=== PATIENT | female | born 1950 | race Caucasian/White ===

== ENCOUNTER → 2023-04-19 07:31 | Outpatient (REF) | payer MEDICARE, SELFPAY ==
[2023-04-19 08:30] LABS: % Basophils 0.7 % (0-2); % Eosinophils 2.1 % (0-6); % Immature Granulocytes 0.2 % (0-0.5); % Lymphocytes 21.5 % (20.5-51.1); % Monocytes 9.3 % (1.7-9.3); % Neutrophils 66.2 % (42.2-75.2); Absolute Eosinophils 0.1 10^3/uL (0-0.7); Absolute Lymphocytes 1.3 10^3/uL (1.2-3.4); Absolute Monocytes 0.5 10^3/uL (0.1-0.6); Absolute Neutrophils 3.9 10^3/uL (1.4-6.5); Hematocrit 38.3 % (37.0-47.0); Hemoglobin 13.1 g/dL (12.0-16.0); Mean Corp Hgb Conc. 34.2 g/dL (33.0-37.0); Mean Corpuscular Hgb 33.5 pg (27.0-31.0); Mean Platelet Volume 8.6 fL (7.4-10.4); Nucleated Red Blood Cells % 0 %; Platelet Count 254 10^3/uL (130-400); Red Blood Cell Count 3.91 10^6/uL (4.20-5.40); Red Cell Dist. Width 12.8 % (11.5-14.5); White Blood Cell Count 5.8 10^3/uL (4.8-10.8)
[2023-04-19 08:58] LABS: ALT (SGPT) 24 U/L (0-35); AST (SGOT) 31 U/L (14-36); Albumin 3.8 g/dl (3.5-5.0); Alkaline Phosphatase 68 U/L (38-126); Blood Urea Nitrogen 14 mg/dl (7-17); Calcium 8.8 mg/dl (8.4-10.2); Carbon Dioxide 32 mmol/L (22-30); Chloride 104 mmol/L (98-107); Glucose 86 mg/dl (70-99); Iron 120 ug/dl (37-170); Magnesium 2.3 mg/dl (1.6-2.3); Potassium 3.7 mmol/L (3.5-5.1); Sodium 136 mmol/L (135-145); Total Bilirubin 0.7 mg/dl (0.2-1.3); Total Cholesterol 199 mg/dl (50-199); Total Protein 5.8 g/dl (6.3-8.2); Triglyceride 70 mg/dl (10-149); Very Low Density Lipoprotein 14 mg/dl (0-30); eGFR > 60.00
[2023-04-19 09:06] LABS: Percent Saturation 45 % (20-50); Total Iron Binding Capacity 266 ug/dl (265-497)
[2023-04-19 09:10] LABS: HDL Cholesterol 121 mg/dl; LDL Cholesterol, Calculated 64 mg/dl
[2023-04-19 09:25] LABS: Free T4 1.47 ng/dl (0.78-2.19)
[2023-04-19 09:40] LABS: TSH 0.53 uIU/ml (0.47-4.68)
[2023-04-19 09:44] LABS: Ferritin 40.7 ng/ml (11.1-264.0)
[2023-04-19 10:16] LABS: Folate > 20.0 ng/ml (2.76-20); Vitamin B12 420 pg/ml (239-931)
[2023-04-21 20:33] LABS: Zinc 68.9 ug/dL (60.0-120.0)
== END ==
LOC: REG 07:31
PROVIDERS: ATTENDING PHYSICIAN Nurse Practitioner Primary Care
DX: E78.2 Mixed hyperlipidemia (principal); E03.8 Other specified hypothyroidism; Z98.84 Bariatric surgery status; D50.8 Other iron deficiency anemias
CPT/HCPCS: 36415; 80053; 80061; 82607; 82728; 82746; 83540; 83550; 83735; 84439; 84443; 84630; 85025

== ENCOUNTER 2023-05-09 11:26 | Emergency (ER) | payer MEDICARE, SELFPAY ==
[2023-05-09 11:36] VITALS: BP 144/91; BMI 23.3
[2023-05-09 12:25] VITALS: BP 141/94
[2023-05-09 12:43] LABS: % Basophils 0.8 % (0-2); % Eosinophils 1.1 % (0-6); % Immature Granulocytes 0.2 % (0-0.5); % Lymphocytes 27.4 % (20.5-51.1); % Neutrophils 60.5 % (42.2-75.2); Absolute Eosinophils 0.1 10^3/uL (0-0.7); Absolute Lymphocytes 1.5 10^3/uL (1.2-3.4); Absolute Monocytes 0.5 10^3/uL (0.1-0.6); Absolute Neutrophils 3.2 10^3/uL (1.4-6.5); Hematocrit 43.2 % (37.0-47.0); Hemoglobin 14.4 g/dL (12.0-16.0); Mean Corp Hgb Conc. 33.3 g/dL (33.0-37.0); Mean Corpuscular Volume 98.9 fL (81.0-99.0); Mean Platelet Volume 8.5 fL (7.4-10.4); Nucleated Red Blood Cells % 0 %; Platelet Count 308 10^3/uL (130-400); Red Blood Cell Count 4.37 10^6/uL (4.20-5.40); Red Cell Dist. Width 12.8 % (11.5-14.5); White Blood Cell Count 5.3 10^3/uL (4.8-10.8)
[2023-05-09 12:59] LABS: ALT (SGPT) 22 U/L (0-35); AST (SGOT) 27 U/L (14-36); Alkaline Phosphatase 72 U/L (38-126); Blood Urea Nitrogen 17 mg/dl (7-17); Calcium 9.6 mg/dl (8.4-10.2); Carbon Dioxide 31 mmol/L (22-30); Chloride 100 mmol/L (98-107); Estimated Creatinine Clearance 76 ml/min; Glucose 101 mg/dl (70-99); Potassium 4.4 mmol/L (3.5-5.1); Sodium 136 mmol/L (135-145); Total Bilirubin 0.6 mg/dl (0.2-1.3); Total Protein 6.1 g/dl (6.3-8.2); eGFR > 60.00
[2023-05-09 13:00] VITALS: BP 135/74
--- NOTE | 2023-05-09 13:35 | ED.GENMED ---
History of Present Illness
General
Chief Complaint: Cardiac Symptoms
Source: patient and spouse
Exam Limitations: none
Time Seen by Provider: 05/09/23 12:36
Nursing documentation reviewed up to this point in time: agreed with
Travel History
Have you had any contact with someone who has COVID-19?: No
Do you have any symptoms of coronavirus? Fever > 100 degrees, chills, cough, shortness of breath, sore throat, loss of taste or smell, muscle aches, or headache?: No
History of Present Illness
History of Present Illness:
72-year-old female with history of hypothyroidism, anxiety/depression, ADHD who presents to the emergency room for evaluation after her watch told her that she is in A-fib. Patient has no symptoms that she feels well�she denies any chest pain,
shortness of breath, palpitations, increased fatigue, dizziness, lightheadedness or any other symptoms. She says that today her watch alarmed and when she rechecked it it told her that she was in A-fib. She says that she went back and looked at
her history after seeing this and noticed that she has been in A-fib according to the watch on and off at least since March and she says she had an episode as far back as April last year. She denies any known cardiac history or history of A-fib
and has never seen a biomedical analytical scientist but her sees Dr. Lugo and she would like to follow-up with same group.
Past History
Past History
ED Past Medical History: Hypothyroidism, Other (CPPD, ADHAD, Bipolar, iron deficiency anemia) and Other (Frequent falls, difficulty with balance chronically)
ED Past Surgical History: and Other (Gastric bypass)
Social History
Tobacco: Non-smoker
Personal:
Living: with family
Review of Systems
Review of Systems
All Other Systems: ROS reviewed and negative except as documented in HPI and ROS
Constitutional: Denies fever or chills
Respiratory: Denies cough or trouble breathing
Cardiac: Denies chest pain, diaphoresis, palpitations or syncope
ABD/GI: Denies abdominal pain, nausea or vomiting
: Denies flank pain
Musculoskeletal: Denies neck pain or back pain
Neurological: Denies dizzy, headache, weakness or numbness
Phy Exam
Physical Exam
Physical Exam:
General: Awake, alert, oriented x3; no acute distress
Head: Normocephalic, atraumatic
Eyes: Conjunctiva normal, sclera anicteric, pupils equal round reactive to light bilaterally
Throat: Airway intact, handling secretions
Neck: Trachea midline, supple without meningismus
Lungs: Clear to auscultation bilaterally, no wheezing, rales, rhonchi
Heart: Regular rate and irregular rhythm, no murmurs, gallops, or rubs
Neuro: Cranial nerves grossly intact, speech fluid
Extremities: No edema in extremities, equal pulses in all extremities
Scores
Heart Failure Risk
Heart Failure Risk Score: Not Applicable
Heart Score for Chest Pain Patients
STEMI patient?: Not applicable
Withdrawal Assessment of Alcohol
Withdrawal Assessment Completed?: Not applicable
Course
Orders/Labs/Results
Orders:
Orders
05/09/23 11:29
Electrocardiogram (*1) Urgent
Reason for Study: Chest Pain
EKG- Treatment ONCE
05/09/23 12:28
Complete Blood Count/With Diff Urgent
Comprehensive Metabolic Panel Urgent
TSH Reflex To Free T4 Urgent
Comment: ADD ON
05/09/23 13:30
Add On- LAB Urgent
Tests Added?: TSH reflex to free T4
Abnormal Lab Results
05/09/23
12:28
MCH 33.0 H pg
(27.0-31.0)
Monocytes % 10.0 H %
(1.7-9.3)
Carbon Dioxide 31 H mmol/L
(22-30)
Creatinine 0.4 L mg/dL
(0.6-1.0)
Glucose 101 H mg/dl
(70-99)
Total Protein 6.1 L g/dl
(6.3-8.2)
05/09/23 12:28
05/09/23 12:28
Vital Signs
Initial and Last Documented VS:
Initial Vital Signs
Temp Pulse Resp BP Pulse Ox
36.4 C 75 16 144/91 99
05/09/23 11:36 05/09/23 11:36 05/09/23 11:36 05/09/23 11:36 05/09/23 11:36
Last Documented Vital Signs
Temp Pulse Resp BP Pulse Ox
36.4 C 87 20 141/94 96
05/09/23 11:36 05/09/23 12:30 05/09/23 12:30 05/09/23 12:25 05/09/23 12:26
MDM/Problems Addressed
Differential Diagnosis Includes:
A-fib/flutter
MDM/Problems Addressed:
72-year-old female presents to the emergency room asymptomatic that she presents because her watch told her she is in A-fib. She says that reviewing the data shows she has been in and out of A-fib for quite some time. She is mildly hypertensive
but vital signs otherwise normal including a heart rate in the 70s or 80s. Her EKG shows atrial flutter with variable conduction. We sent basic screening labs including a CBC and a CMP which are essentially unremarkable. Fortunately she is
asymptomatic and rate controlled. Her [id number] risk is 2. HAS-BLED score is 1 However patient says that she has high rate of falls and has poor balance that she walks with a cane and says she has a fall every few months. Given this there is
some increased risk with anticoagulation. Discussed case with cardiology they recommended starting patient on Toprol 12.5 mg daily and baby aspirin to start and they will follow-up with patient in the office to have a full discussion regarding
risks and benefits of anticoagulation. Patient very comfortable with this plan. Spoke about return precautions all questions answered.
Chronic conditions affecting care:
Fall risk, history of GERD/PUD�higher risk for bleeding
Acute Exacerbation and/or Progression of Chronic Illness:
Acutely hypertensive
Acute Exacerbation and/or Progression of Chronic Illness: HTN
*Pulse Oximetry
Patient hypoxic: no
*EKG
Interpreted by ED Provider?: Yes
Heart Rate: 84
Rate: normal
Rhythm: atrial flutter
[place]: normal axis
Interval: normal interval
QRS Pattern: normal QRS
Ischemia: no ischemia
*Critical Care Note
Total Time (30-74mins, 75-104mins- exclusive of procedures): Not Applicable
Data Reviewed
Source: patient and spouse
Prescriptions/Medications Considered But Not Given:
Considered anticoagulation such as Eliquis or Xarelto but given potential bleeding risk deferred to further discussion with cardiology
Patient Management
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
ED Attending Note
-
Portions of this chart may have been created with voice recognition software.� Occasional wrong word or��sound alike� substitutions may have occurred due to the inherent limitations of voice recognition software.
Discharge Plan
Departure
Patient Disposition: Home (Routine Discharge)
Date of Disposition: 05/09/23
Time of Disposition: 13:43
Patient with high blood pressure during this ER visit?: Yes
Discharge Problem:
Atrial flutter
Instructions: Atrial Fibrillation and Atrial Flutter ED
Prescriptions:
New
metoprolol succinate [Toprol XL] 25 mg tablet extended release 24 hr
12.5 mg PO DAILY Qty: 30 0RF
aspirin 81 mg tablet,delayed release (DR/EC)
81 mg PO DAILY Qty: 30 0RF
No Action
levothyroxine 100 MCG tablet
100 mcg PO DAILY Qty: 0
folic acid 1 MG tablet
1 mg PO DAILY Qty: 0
lamotrigine [Lamictal] 200 MG tablet
400 mg PO HS
famotidine 20 MG tablet
20 mg PO HS
cholecalciferol (vitamin D3) [Vitamin D3] 2,000 UNIT capsule
2,000 unit PO DAILY
amoxicillin 500 MG capsule
500 mg PO TID
dextroamphetamine-amphetamine [Adderall] 30 MG tablet
30 mg PO TID
calcium carbonate 500 MG tablet
500 mg PO DAILY
trazodone 100 MG tablet
200 mg PO HS
duloxetine 20 MG capsule,delayed release(DR/EC)
20 mg PO DAILY
melatonin 5 MG tablet
5 mg PO HS
psyllium husk (aspartame) [Metamucil Fiber Singles] 1 PACKET powder in packet
1 packet PO DAILY
lurasidone [Latuda] 120 MG tablet
120 mg PO HS
sennosides [senna] 1 TABLET tablet
2 tab PO BID 0RF
acetaminophen [Tylenol Extra Strength] 500 MG tablet
1,000 mg PO Q6H Qty: 60 0RF
Rx Instructions:
Do not take >4000 mg daily.
docusate sodium 100 MG capsule
100 mg PO BID 0RF
oxycodone 10 MG tablet
10 mg PO Q6HPRN PRN (Reason: moderate-severe pain) Qty: 30 0RF
Rx Instructions:
1/2 tab for moderate pain, 1 if severe
dx ACDF
ongoing therapy
prednisone 10 MG tablet
30 mg PO TAPER Qty: 12 0RF
Rx Instructions:
3 tabs (30mg) x2 days, 2 tabs (20mg) x2 days, 1 tab (10mg) x2 days, then stop
cyclobenzaprine 5 MG tablet
5 mg PO BIDPRN PRN (Reason: muscle spasms) Qty: 10 0RF
Rx Instructions:
Caution with Oxycodone - can cause drowsiness.
tramadol 50 mg tablet
50 mg PO BID PRN (Reason: Pain) Qty: 20 0RF
Referrals:
Barb Alexandre CRNP [Family Provider] -
Aaron Moncada MD [Active] - Call in 1-3 days for appt (Cardiology)
Activity Restrictions/Additional Instructions:
Thank you for visiting the Emergency Department at [facility].
1. Please schedule a follow up appointment as directed. Call first thing tomorrow morning to make an appointment.
2. If indicated, please take your medications as instructed and indicated on discharge paperwork.
3. If any of your symptoms do not improve, or persist, or become more severe within 6-12 hours, please return to the emergency department for further care.
4. Please return to the emergency department if you develop a headache, neck pain/stiffness, fever greater than 100.4F, chest pain, shortness of breath, persistent nausea, vomiting, slurred speech, difficulty walking, numbness/tingling, weakness,
signs of infection or any other symptoms that are worrisome to you.
Please call [phone] if you have any questions.
Interventions
Interventions:
*Risk Screen - Suicide Last Done: 05/09/23 11:36
*General Assessment Last Done: 05/09/23 12:15
*Neglect/Abuse Screening Last Done: 05/09/23 12:15
*ED COVID-19 Vaccine History Last Done: 05/09/23 11:36
ED- Pulmonary Assessment Last Done: 05/09/23 12:26
ED- Cardiac Assessment Last Done: 05/09/23 12:15
Discharge Date and Time
Print Language: YAKUT
[2023-05-09] MEDS: LOW STRENGTH ASPIRIN 81 MG PO (13:55)
[2023-05-09] MEDS: TOPROL XL 12.5 MG PO (13:55)
[2023-05-09 14:12] VITALS: BP 135/74
[2023-05-09 14:21] LABS: TSH Reflex To Free T4 0.55 uIU/ml (0.47-4.68)
== END 2023-05-09 14:12 | disposition home or self-care (01) ==
LOC: EMR 11:26
PROVIDERS: Emergency Medicine; EMERGENCY PHYSICIAN Emergency Medicine; FAMILY PHYSICIAN Nurse Practitioner Primary Care
DX: I48.92 Unspecified atrial flutter (principal); I48.91 Unspecified atrial fibrillation; E03.9 Hypothyroidism, unspecified; F41.9 Anxiety disorder, unspecified; F90.9 Attention-deficit hyperactivity disorder, unspecified type; I10 Essential (primary) hypertension; K21.9 Gastro-esophageal reflux disease without esophagitis; Z98.84 Bariatric surgery status
CPT/HCPCS: 99283; 80053; 84443; 85025; 93005

== ENCOUNTER → 2023-06-12 08:33 | Outpatient (REF) | payer MEDICARE, SELFPAY | LOC: RCS 08:33 | PROVIDERS: ATTENDING PHYSICIAN Nuclear Medicine Nuclear Cardiology; FAMILY PHYSICIAN Nurse Practitioner Primary Care | DX: I48.0 Paroxysmal atrial fibrillation (principal) | CPT/HCPCS: 93306 ==

== ENCOUNTER → 2023-07-01 09:48 | Outpatient (REF) | payer MEDICARE, SELFPAY | LOC: PAVMRI 09:48 | PROVIDERS: ATTENDING PHYSICIAN Psychiatry & Neurology Neurology; FAMILY PHYSICIAN Nurse Practitioner Primary Care | DX: R41.89 Other symptoms and signs involving cognitive functions and awareness (principal) | CPT/HCPCS: 70553; A9575 ==

== ENCOUNTER → 2023-08-05 07:07 | Outpatient (REF) | payer MEDICARE, SELFPAY | LOC: MRI 07:07 | PROVIDERS: ATTENDING PHYSICIAN Psychiatry & Neurology Neurology; FAMILY PHYSICIAN Internal Medicine | DX: G95.9 Disease of spinal cord, unspecified (principal) | CPT/HCPCS: 72141 ==

== ENCOUNTER → 2023-08-06 18:14 | Outpatient (REF) | payer MEDICARE, SELFPAY | LOC: PAVMRI 18:14 | PROVIDERS: ATTENDING PHYSICIAN Physical Medicine & Rehabilitation Sports Medicine; FAMILY PHYSICIAN Nurse Practitioner Primary Care | DX: M25.511 Pain in right shoulder (principal); M75.100 Unspecified rotator cuff tear or rupture of unspecified shoulder, not specified as traumatic; M75.81 Other shoulder lesions, right shoulder; M75.21 Bicipital tendinitis, right shoulder | CPT/HCPCS: 73221 ==

== ENCOUNTER 2023-09-27 06:55 | Day surgery (SDC) | payer MEDICARE, SELFPAY | END 2023-09-27 09:05 | disposition home or self-care (01) | LOC: CATH 06:55 | PROVIDERS: ATTENDING PHYSICIAN Internal Medicine Cardiovascular Disease; FAMILY PHYSICIAN Nurse Practitioner Primary Care; OTHER PHYSICIAN Nuclear Medicine Nuclear Cardiology | DX: I48.0 Paroxysmal atrial fibrillation (principal); R53.83 Other fatigue; I67.9 Cerebrovascular disease, unspecified; R41.89 Other symptoms and signs involving cognitive functions and awareness; F90.9 Attention-deficit hyperactivity disorder, unspecified type; Z79.01 Long term (current) use of anticoagulants | CPT/HCPCS: 93312; 93320; 93325 ==

== ENCOUNTER 2023-09-30 11:01 | Day surgery (SDC) | payer MEDICARE, SELFPAY ==
[2023-09-16 09:13] VITALS: BMI 24.8
[2023-09-16 10:02] LABS: % Basophils 0.7 % (0-2); % Eosinophils 1.2 % (0-6); % Immature Granulocytes 0.3 % (0-0.5); % Lymphocytes 18.2 % (20.5-51.1); % Monocytes 8.7 % (1.7-9.3); % Neutrophils 70.9 % (42.2-75.2); Absolute Basophils 0.1 10^3/uL (0-0.2); Absolute Eosinophils 0.1 10^3/uL (0-0.7); Absolute Lymphocytes 1.4 10^3/uL (1.2-3.4); Absolute Monocytes 0.7 10^3/uL (0.1-0.6); Absolute Neutrophils 5.3 10^3/uL (1.4-6.5); Hematocrit 43.8 % (37.0-47.0); Hemoglobin 15.2 g/dL (12.0-16.0); Mean Corp Hgb Conc. 34.7 g/dL (33.0-37.0); Mean Corpuscular Hgb 34.2 pg (27.0-31.0); Mean Corpuscular Volume 98.6 fL (81.0-99.0); Mean Platelet Volume 8.5 fL (7.4-10.4); Nucleated Red Blood Cells % 0 %; Platelet Count 283 10^3/uL (130-400); Red Blood Cell Count 4.44 10^6/uL (4.20-5.40); Red Cell Dist. Width 12.8 % (11.5-14.5); White Blood Cell Count 7.5 10^3/uL (4.8-10.8)
[2023-09-16 10:40] LABS: INR 1.23; PT 15.3 Sec (11.4-14.6)
[2023-09-16 11:32] LABS: ALT (SGPT) 21 U/L (0-35); AST (SGOT) 32 U/L (14-36); Albumin 4.5 g/dl (3.5-5.0); Alkaline Phosphatase 64 U/L (38-126); Blood Urea Nitrogen 20 mg/dl (7-17); Calcium 9.7 mg/dl (8.4-10.2); Carbon Dioxide 29 mmol/L (22-30); Chloride 98 mmol/L (98-107); Estimated Creatinine Clearance 62 ml/min; Glucose 80 mg/dl (70-99); Potassium 4.6 mmol/L (3.5-5.1); Sodium 136 mmol/L (135-145); Total Bilirubin 0.7 mg/dl (0.2-1.3); Total Protein 6.5 g/dl (6.3-8.2); eGFR > 60.00
[2023-09-30] VITALS (19 sets, daily range): BP systolic 72–114; BP diastolic 54–88; BMI 23.5
[2023-09-30 14:46] LABS: ACT-LR - POC 261 Seconds (116-155)
[2023-09-30 15:05] LABS: ACT-LR - POC 302 Seconds (116-155)
--- NOTE | 2023-09-30 16:50 | ITS.CL.ABL ---
District Plant Engineer - Ablation
Ablation
Procedure Report:
ELECTROPHYSIOLOGIC STUDY AND POSSIBLE ABLATION
DATE: September 30, 2023
Primary Care Provider: Barb Motley
Primary Advertising Analyst: Dr Dick Perry
INDICATION:
Symptomatic Atrial Fibrillation.
Persistent
HISTORY: See H and P.
Symptomatic AF, poorly controlled with attempted medical therapy
HAS-BLED: 2
Age
Alcohol use (in remission)
CHADSVASc: 2
Age
F Gender
PRESENTING RHYTHM: AF
HISTORY: See H and P.
Symptomatic AF, poorly controlled with attempted medical therapy.
ANTICOAGULATION: apixaban
'TIME-OUT': called and confirmed.
SEDATION/ANESTHESIA: provided via the anesthesia department using general anesthesia.
PROCEDURE:
Ultrasound Guidance performed by wi was utilized for femoral venous Vascular Access b/l.
A decapolar CS catheter was placed within the CS for mapping and pacing.
The intracardiac ultrasound catheter was positioned in the RA for continuous intracardiac ultrasound imaging.
Heparin bolus and infusion to target ACT at 300 -350 seconds was administered. Transseptal puncture was performed. This entailed advancing a sheath with dilator into the superior vena cava and withdrawing both (monitoring intracardiac ultrasound,
fluoroscopy and tip pressure) with the tip oriented toward the atrial septum. The fossa ovalis was engaged (indicated by sudden displacement of the sheath tip as well as tenting of the fossa seen on intracardiac ultrasound).
[employer] transseptal system was used. Left atrial catheter position was confirmed by echocardiographic imaging, pressure monitoring (LA mean pressure 10 mm Hg) and fluoroscopy. The sheath was advanced over the dilator and positioned in the left
atrium.
The multipolar mapping catheter was initially positioned through the transseptal sheath for high density mapping.
Geometry and voltage mapping was performed using the Asoka multipolar grid catheter. Navex was utilized for three-dimensional electroanatomical mapping.
A 3-D map was created using Navex. A 3-D reconstructed CT image was compared to the 3-D Navex map to assist in anatomic evaluation, mapping and ablation.
The [employer] Pulse Select PFA catheter and system was used for cardiac ablation. Catheter positioning was guided and confirmed using both I.C.E. and fluoroscopy.
PV isolation approach was used to electrically isolate each PV ostia ([ ] LSPV, LIPV, RSPV, RIPV). [ ] Additional energy applications/additional ablation sets were required to accomplish both wide area circumferential ablation around each of the
pulmonary vein sets and left atrial posterior wall isolation..
Remapping with the Asoka multipolar grid catheter found as well as pacing maneuvers demonstrated electrical isolation at the level of the pulmonary vein ostia, [ ] wide area circumferentially around the PV sets, and left atrial posterior wall.
I.C.E. :
Pre-Ablation Post-Ablation
LVEF: 55 % 55 %
WMA: none none
Pericardial effusion: none none
COMPLICATIONS:
none
SUMMARY:
- Mapping and ablation to isolate the PVs
- Additional AF ablation set after PVI (WACA and LA post wall isolation).
- 3-D Electroanatomical Mapping
- Intracardiac Ultrasound
Post ablation, I discussed today's findings and results with the patient's , Oliver.
RECOMMENDATIONS:
- Observe in monitored bed.
- Maintain oral anticoagulation.
- Office visit with Dr Perry in 3 months.
- Continue cardiovascular care with Dr Perry
Copy to:
Barb Motley
Dr Dick Perry
--- NOTE | 2023-09-30 17:15 | W.PN.UPDATE ---
Update Note
Progress Note Update
Pt seen post PFA. Right groin site without HT/bleeding, mildly tender to palpation but soft. Post EKG NSR 65, no acute changes. Resume eliquis tonight, continue other meds as before. Followup at [facility] as scheduled. Home later today if groin site/tele
remain stable.
[2023-09-30] MEDS: ANESTHETIC LOZENGE 1 LOZENGE PO (17:28)
--- NOTE | 2023-09-30 17:50 | PTCARENOTE ---
Post angiography and post cath notes from 1624, 163, and 164 accidentally documented under Kusum Vincent was actually documented by Niru White RN.
== END 2023-09-30 18:30 | disposition home or self-care (01) ==
LOC: CATH 11:01
PROVIDERS: ATTENDING PHYSICIAN Internal Medicine Cardiovascular Disease; FAMILY PHYSICIAN Nurse Practitioner Primary Care
DX: I48.0 Paroxysmal atrial fibrillation (principal); R53.83 Other fatigue; Z79.899 Other long term (current) drug therapy; Z79.01 Long term (current) use of anticoagulants; Z91.81 History of falling; F31.81 Bipolar II disorder; F90.9 Attention-deficit hyperactivity disorder, unspecified type; I47.19 Other supraventricular tachycardia; I08.1 Rheumatic disorders of both mitral and tricuspid valves; D50.9 Iron deficiency anemia, unspecified; E03.9 Hypothyroidism, unspecified; F41.9 Anxiety disorder, unspecified; F10.91 Alcohol use, unspecified, in remission; G47.00 Insomnia, unspecified; I49.1 Atrial premature depolarization; M81.0 Age-related osteoporosis without current pathological fracture; W19.XXXA Unspecified fall, initial encounter; Z79.890 Hormone replacement therapy; Z98.84 Bariatric surgery status; M19.90 Unspecified osteoarthritis, unspecified site; Z96.651 Presence of right artificial knee joint; Z98.890 Other specified postprocedural states; E55.9 Vitamin D deficiency, unspecified; I67.9 Cerebrovascular disease, unspecified; F32.A Depression, unspecified; R26.9 Unspecified abnormalities of gait and mobility
CPT/HCPCS: C1732; C1894; C1733; C1769; C1730; C1892; C1766; 36415; 75572; 76937; 80053; 83735; 85025; 85347; 85610; 86850; 86900; 86901; 93005; 93656; 93657; C1760; Q9967

== ENCOUNTER → 2023-10-16 16:01 | Outpatient (REF) | payer MEDICARE, SELFPAY | LOC: HWWDC 16:01 | PROVIDERS: ATTENDING PHYSICIAN Nurse Practitioner Primary Care | DX: Z12.31 Encounter for screening mammogram for malignant neoplasm of breast (principal) | CPT/HCPCS: 77063; 77067 ==

== ENCOUNTER → 2023-11-22 09:18 | Outpatient (REF) | payer MEDICARE, SELFPAY ==
[2023-11-22 11:00] LABS: % Basophils 0.7 % (0-2); % Eosinophils 0.5 % (0-6); % Immature Granulocytes 0.2 % (0-0.5); % Lymphocytes 22.2 % (20.5-51.1); % Monocytes 8.5 % (1.7-9.3); % Neutrophils 67.9 % (42.2-75.2); Absolute Lymphocytes 1.4 10^3/uL (1.2-3.4); Absolute Monocytes 0.5 10^3/uL (0.1-0.6); Absolute Neutrophils 4.1 10^3/uL (1.4-6.5); Hematocrit 43.9 % (37.0-47.0); Mean Corp Hgb Conc. 34.2 g/dL (33.0-37.0); Mean Corpuscular Hgb 34.4 pg (27.0-31.0); Mean Corpuscular Volume 100.7 fL (81.0-99.0); Mean Platelet Volume 9.1 fL (7.4-10.4); Nucleated Red Blood Cells % 0 %; Platelet Count 290 10^3/uL (130-400); Red Blood Cell Count 4.36 10^6/uL (4.20-5.40); Red Cell Dist. Width 12.6 % (11.5-14.5); White Blood Cell Count 6.1 10^3/uL (4.8-10.8)
[2023-11-22 11:39] LABS: ALT (SGPT) 26 U/L (0-35); AST (SGOT) 32 U/L (14-36); Albumin 4.4 g/dl (3.5-5.0); Alkaline Phosphatase 57 U/L (38-126); Blood Urea Nitrogen 16 mg/dl (7-17); Calcium 9.7 mg/dl (8.4-10.2); Carbon Dioxide 31 mmol/L (22-30); Chloride 99 mmol/L (98-107); Glucose 88 mg/dl (70-99); Potassium 4.6 mmol/L (3.5-5.1); Sodium 139 mmol/L (135-145); Total Bilirubin 0.6 mg/dl (0.2-1.3); Total Protein 6.2 g/dl (6.3-8.2); eGFR > 60.00
[2023-11-22 11:53] LABS: Vitamin D, 25-OH*** 43.9 ng/mL (30-80)
[2023-11-22 12:07] LABS: TSH 1.07 uIU/ml (0.47-4.68)
[2023-11-22 12:26] LABS: Vitamin B12 497 pg/ml (239-931)
== END ==
LOC: REG 09:18
PROVIDERS: ATTENDING PHYSICIAN Psychiatry & Neurology Neurology; FAMILY PHYSICIAN Nurse Practitioner Primary Care; REFERRING PHYSICIAN Student in an Organized Health Care Education/Training Program
DX: M81.0 Age-related osteoporosis without current pathological fracture (principal); R41.3 Other amnesia
CPT/HCPCS: 36415; 80053; 82306; 82607; 84443; 85025

== ENCOUNTER 2024-02-11 05:56 | Inpatient (IN) | payer MEDICARE, SELFPAY ==
[2024-02-07 14:03] VITALS: BMI 24.7
[2024-02-07 14:21] LABS: % Basophils 0.6 % (0-2); % Eosinophils 2.5 % (0-6); % Immature Granulocytes 0.3 % (0-0.5); % Lymphocytes 23.8 % (20.5-51.1); % Monocytes 9.2 % (1.7-9.3); % Neutrophils 63.6 % (42.2-75.2); Absolute Eosinophils 0.2 10^3/uL (0-0.7); Absolute Lymphocytes 1.7 10^3/uL (1.2-3.4); Absolute Monocytes 0.6 10^3/uL (0.1-0.6); Absolute Neutrophils 4.4 10^3/uL (1.4-6.5); Hematocrit 43.9 % (37.0-47.0); Hemoglobin 14.9 g/dL (12.0-16.0); Mean Corp Hgb Conc. 33.9 g/dL (33.0-37.0); Mean Corpuscular Hgb 34.6 pg (27.0-31.0); Mean Corpuscular Volume 101.9 fL (81.0-99.0); Mean Platelet Volume 8.7 fL (7.4-10.4); Nucleated Red Blood Cells % 0 %; Platelet Count 279 10^3/uL (130-400); Red Blood Cell Count 4.31 10^6/uL (4.20-5.40); Red Cell Dist. Width 12.4 % (11.5-14.5); White Blood Cell Count 6.9 10^3/uL (4.8-10.8)
[2024-02-07 14:27] LABS: INR 0.98; PT 13.5 Sec (11.4-14.6)
[2024-02-07 14:56] LABS: ALT (SGPT) 33 U/L (0-35); AST (SGOT) 42 U/L (14-36); Albumin 4.5 g/dl (3.5-5.0); Alkaline Phosphatase 54 U/L (38-126); Blood Urea Nitrogen 17 mg/dl (7-17); Carbon Dioxide 32 mmol/L (22-30); Chloride 99 mmol/L (98-107); Estimated Creatinine Clearance 75 ml/min; Glucose 80 mg/dl (70-99); Magnesium 2.3 mg/dl (1.6-2.3); Sodium 136 mmol/L (135-145); Total Bilirubin 0.4 mg/dl (0.2-1.3); Total Protein 6.4 g/dl (6.3-8.2); eGFR > 60.00
[2024-02-11] VITALS (19 sets, daily range): BP systolic 89–155; BP diastolic 58–133; BMI 23.6
[2024-02-11 08:38] LABS: ACT-LR - POC 295 Seconds (116-155)
[2024-02-11 08:57] LABS: ACT-LR - POC 319 Seconds (116-155)
--- NOTE | 2024-02-11 09:20 | W.PN.UPDATE ---
Update Note
Progress Note Update
Patient reviewed at pre-procedure meeting. Plan is for 31mm watchman device based on CT imaging but will confirm with GUERRERO at time of procedure. Post procedure patient will continue on Eliquis 5mg BID for 3 months until follow up GUERRERO.
[2024-02-11 09:35] LABS: ACT-LR - POC 298 Seconds (116-155)
--- NOTE | 2024-02-11 09:52 | ITS.CL.ABL ---
Skates Operator - Ablation
Ablation
Procedure Report:
ELECTROPHYSIOLOGIC STUDY AND POSSIBLE ABLATION
DATE: 02/11/24
Primary Care Provider: Barb Motley
Primary Mechanical Service Technician: Dr Dick Perry
INDICATION:
Symptomatic Atrial Fibrillation.
Persistent
HISTORY: See H and P.
Symptomatic AF, poorly controlled with attempted medical therapy
HAS-BLED: 3
Age
Alcohol use (in remission)
H/O bleeding
CHADSVASc: 2
Age
F Gender
PRESENTING RHYTHM: AF
HISTORY: See H and P.
Symptomatic AF, poorly controlled with attempted medical therapy.
Prior ablation in September 2023 but has had symptomatic recurrences of atrial fibrillation.
ANTICOAGULATION: apixaban
'TIME-OUT': called and confirmed.
SEDATION/ANESTHESIA: provided via the anesthesia department using general anesthesia.
PROCEDURE:
Ultrasound Guidance performed by ct was utilized for femoral venous Vascular Access b/l.
A decapolar CS catheter was placed within the CS for mapping and pacing.
The intracardiac ultrasound catheter was positioned in the RA for continuous intracardiac ultrasound imaging.
Heparin bolus and infusion to target ACT at 300 -350 seconds was administered. Transseptal puncture was performed. This entailed advancing a sheath with dilator into the superior vena cava and withdrawing both (monitoring intracardiac ultrasound,
fluoroscopy and tip pressure) with the tip oriented toward the atrial septum. The fossa ovalis was engaged (indicated by sudden displacement of the sheath tip as well as tenting of the fossa seen on intracardiac ultrasound).
The e-Zassi transseptal system was used. Left atrial catheter position was confirmed by echocardiographic imaging and fluoroscopy followed by RF delivery using the Lavaboom system resulting in successful LA access with pressure monitoring
demonstrating LA pressure waveforms (LA mean pressure 10 mm Hg). The sheath was advanced over the dilator and positioned in the left atrium.
The [employer] Grid multipolar mapping catheter was initially positioned through the transseptal sheath for high density mapping.
Geometry and voltage mapping was performed using the [employer] multipolar grid catheter. Ensite-X was utilized for three-dimensional electroanatomical mapping.
A 3-D map was created using Ensite-X in Voxel mode. A 3-D reconstructed CT image was compared to the 3-D Navex map to assist in anatomic evaluation, mapping and ablation.
There are 4 distinct pulmonary veins (LSPV, LIPV, RSPV, RIPV). High density electroanatomical mapping demonstrates electrical isolation of the left superior, left inferior and right superior pulmonary vein. There is reconnection of the right
inferior pulmonary vein. Mapping also demonstrates that while most of the posterior wall is isolated, the posterior wall at the antrum of the right inferior pulmonary vein and the floor of the posterior wall are not electrically isolated.
The [employer] catheter and system was used for cardiac ablation. Catheter positioning was guided and confirmed using both I.C.E. and fluoroscopy.
Ablation strategy included reisolation of the right inferior pulmonary vein and additional ablation lesion set which included ablation of the posterior wall of the left atrium. At completion of ablation, all 4 pulmonary veins are electrically
isolated and the posterior wall of the left atrium is electrically isolated. Programmed electrical stimulation which included burst atrial pacing down to atrial ERP failed to induce any atrial arrhythmias.
I.C.E. :
Pre-Ablation Post-Ablation
LVEF: 55 % 55 %
WMA: none none
Pericardial effusion: trace post trace post
COMPLICATIONS:
None
SUMMARY:
- Mapping and ablation to isolate the PVs
- Additional AF ablation set after PVI.
- 3-D Electroanatomical Mapping
- Intracardiac Ultrasound
Post ablation, I called her and left a message re today's findings and results.
RECOMMENDATIONS:
- Proceed towards watchman left atrial appendage occlusion.
Copy to:
Barb Motley
Dr Dick Perry
--- NOTE | 2024-02-11 10:02 | WATCHMAN.MD ---
Watchman Implant
-
WATCHMAN LEFT ATRIAL APPENDAGE CLOSURE DEVICE REPORT
Date: February 11, 2024
Primary Care Provider: Barb Motley
Primary Desulphurizer Operator: Dr Dick Perry
History:
She has a history of GI bleeding as well as multiple traumatic falls. She has a progressive neurologic balance disorder. She has had recurrences of atrial fibrillation and is elevated thromboembolic risk based on her CHADSVASc of 2. She and her
remain markedly concerned over her ongoing fall risks with previous traumatic falls including rib fractures and ongoing marked balance disorder. She has been referred by Dr. Dick Perry for consideration of left atrial appendage occlusion.
After thorough evaluation and shared decision making, she has been deemed an adequate candidate to attempt left atrial appendage occlusion with watchman and she and her wish to proceed as a means to reduce her long-term exposure to
anticoagulation.
Watchman Team:
GUERRERO: Dr Benji Burns M.D.
Implanter: Dr Man Pierce M.D.
Procedure: Watchman left atrial appendage closure.
The patient was placed under general anesthesia by anesthesia.
A GUERRERO probe was placed.
HALEY type: Chicken wing
Heparin was administered to goal ACT 350-400 seconds.
Intracardiac ultrasound catheter was placed in the right atrium identifying the intraatrial septum for transseptal puncture.
Transseptal puncture was previously performed as part of her left atrial mapping and ablation earlier today.
The 14 Polish watchman access system sheath double curve was utilized to deliver the device. A 5 Polish curved pigtail was positioned at the ostium of the left atrial appendage. The 5 Polish pigtail was advanced into the left atrial appendage and
angiography was performed. This allowed additional measurements assessing left atrial appendage ostium size and HALEY morphology.
The pigtail catheter was removed from the access sheath. A 27 mm Watchman device was flushed and then placed into the watchman access sheath and advanced through the sheath. The Watchman was clamped into the sheath. The device was deployed into
the left atrial appendage. Evaluation suggested this may be slightly undersized. The 27 mm device was successfully recaptured. A 31 mm device was then substituted for the 27 mm device and similarly deployed.
The PASS criteria were met. The stability tug test was performed and passed. Angiography and transesophageal echocardiogram revealed no leaks nor jets. The position was confirmed on angiography and transesophageal echo and there were no
significant shoulders. Compression ranges from 11% to 14%.
After meeting the PASS release criteria the device was released into the left atrial appendage.
The watchman access sheath was then removed through the transseptal into the IVC. A figure 8 suture closure was performed at the site of the femoral venous puncture and the sheaths were removed.
Impression:
SUCCESSFUL DEPLOYMENT OF 31 mm WATCHMAN LEFT ATRIAL APPENDAGE CLOSURE DEVICE.
Recommended anticoagulation strategy for this specific patient is:
Maintaining oral anticoagulation for at least 3 months post Watchman then if GUERRERO Shows no significant leaks, no device related thrombi and adequate seating of the device oral anticoagulation can be stopped in favor of aspirin 81 mg daily
At post procedure GUERRERO, leaks > 5mm are significant and require chronic full anticoagulation or consideration for leak closure. Ramonita-device leaks between 3 and 5 mm may also carry an increased risk. These patients will need individualized risk
assessment and discussion with Watchman team. Leaks < 3 mm are generally considered non-significant. With leak of any size suggestion is to check GUERRERO 12 mo out from implant.
Appointment with one of our EP APPs 02/24/24
Continue cardiovascular care with Dr. Perry in 3 months.
cc:
Barb Motley
Dr Dick Perry
[2024-02-11] MEDS: ANESTHETIC LOZENGE 1 LOZENGE PO (10:41)
[2024-02-11] MEDS: DILAUDID 0.25 MG IV (10:44)
[2024-02-11] MEDS: TORADOL 15 MG IV (11:15)
--- NOTE | 2024-02-11 14:47 | W.DS.TRANS ---
DC Summary - Byproduct Engineer
-
Discharge Instructions:
Discharge Diagnosis/Procedures AFib, s/p ablation + watchman device implant
Diet Low Cholesterol
Driving Restrictions No driving for 24 hours
Instructions:
Stand-Alone Forms: DC Instructions- Cath/EP Lab
Changes to Home Medications: No
Discharge Medications:
DC Medications w/original date entered in [employer]
levothyroxine 100 mcg tablet 100 mcg PO DAILY Thyroid ##0 03/02/15
lamotrigine 200 mg tablet (Lamictal) 175 mg PO DAILY Seizures 12/23/15
dextroamphetamine-amphetamine 30 mg tablet (Adderall) 20 mg PO TID Mental Health/Anxiety 02/23/20
lurasidone 120 mg tablet (Latuda) 120 mg PO QPM bipolar disorder 02/23/20
trazodone 100 mg tablet 200 mg PO HS Sleep 02/23/20
Centrum 1 tab PO DAILY 09/13/23
alprazolam 0.25 mg tablet (Xanax) 0.25 mg PO DAILYPRN PRN anxiety 09/13/23
apixaban 5 mg tablet (Eliquis) 5 mg PO BID 09/13/23
calcium citrate 500 mg PO BID 09/13/23
cholecalciferol (vitamin D3) 25 mcg (1,000 unit) chewable tablet (Vitamin D3) 25 mcg PO NOON 09/13/23
duloxetine 60 mg capsule,delayed release 90 mg PO QPM 09/13/23
famotidine-Ca carb-mag hydrox 10 mg-800 mg-165 mg chewable tablet (Pepcid Complete) 1 tab PO HS 09/13/23
ferrous sulfate 325 mg (65 mg iron) tablet (Iron (ferrous sulfate)) 325 mg PO DAILY 09/13/23
folic acid 800 mcg tablet 0.8 mg PO NOON 09/13/23
magnesium oxide 500 mg capsule 500 mg PO NOON 09/13/23
metoprolol succinate 25 mg tablet,extended release 24 hr (Toprol XL) 12.5 mg PO NOON 09/13/23
thiamine HCl (vitamin B1) 100 mg tablet (Vitamin B-1) 100 mg PO NOON 09/13/23
acetaminophen 500 mg tablet (Tylenol Extra Strength) 1,000 mg PO Q6HPRN PRN pain 09/30/23
lamotrigine 150 mg tablet (Lamictal) 150 mg PO QPM 02/11/24
Home Medication Changes
Pending Results: No
--- NOTE | 2024-02-11 15:05 | CM ---
Reviewed chart. Met with Mrs. Chatman to review discharge plans. She states prior to admission she resides with her spouse in a two story home. She states she has a full flight of steps to get to bedroom/full bathroom. She states she has a stair
glide to get to the second floor. She states she has difficulty ambulation due to a spinal injury. She states she has stair glide, walkers, rollator, wheelchair, electric wheelchair and wheeled chair at home. She states she has had [facility] in the
past. She states she has gone to outpatient rehab. in the past nut she could not do a lot with them She states she has a prescription plan and uses [facility]. Medical work-up in progress. The discharge plan is to return home with her spouse
when medically stable.
[2024-02-11] MEDS: MAGNESIUM OXIDE PO (16:09)
[2024-02-11] MEDS: TOPROL XL PO (16:09)
[2024-02-11] MEDS: CYMBALTA DELAYED RELEASE 90 MG PO (17:45)
[2024-02-11] MEDS: ADDERALL 20 MG PO (17:46)
[2024-02-11] MEDS: LATUDA 120 MG PO (18:27)
[2024-02-11] MEDS: LAMICTAL 150 MG PO (18:28)
[2024-02-11] MEDS: ELIQUIS 5 MG PO (19:51)
[2024-02-11] MEDS: DESYREL 200 MG PO (22:17)
--- NOTE | 2024-02-12 01:41 | PTCARENOTE ---
Assumed care of patient at change of shift. Right groin dressing C/D/I and small ecchymosis near site. Bilateral DP pulses palpable. Tele remains SR. Patient denies any pain or discomfort. Ambulates w/ one assist OOB, and c/o unsteady gait at times.
Patient aware of POC, call hutton within reach.
[2024-02-12 03:26] VITALS: BP 99/66
[2024-02-12 04:37] LABS: Hematocrit 35.1 % (37.0-47.0); Hemoglobin 11.8 g/dL (12.0-16.0); Mean Corp Hgb Conc. 33.6 g/dL (33.0-37.0); Mean Corpuscular Volume 101.2 fL (81.0-99.0); Mean Platelet Volume 8.9 fL (7.4-10.4); Platelet Count 210 10^3/uL (130-400); Red Blood Cell Count 3.47 10^6/uL (4.20-5.40); Red Cell Dist. Width 12.5 % (11.5-14.5); White Blood Cell Count 8.6 10^3/uL (4.8-10.8)
[2024-02-12 04:47] LABS: Blood Urea Nitrogen 21 mg/dl (7-17); Carbon Dioxide 29 mmol/L (22-30); Chloride 100 mmol/L (98-107); Estimated Creatinine Clearance 75 ml/min; Glucose 92 mg/dl (70-99); Magnesium 1.8 mg/dl (1.6-2.3); Potassium 4.4 mmol/L (3.5-5.1); Sodium 135 mmol/L (135-145); eGFR > 60.00
[2024-02-12] MEDS: SYNTHROID 100 MCG PO (05:17)
[2024-02-12 07:17] VITALS: BP 112/65
--- NOTE | 2024-02-12 08:10 | PTCARENOTE ---
Assumed care of pt from prev nsg shift; Pt AAOX3 w/no c/o CP or SOB. Pt's VS stable this AM w/HR in the 60's & BP this AM 112/65. Pt is SR on telemetry monitoring. Pt assisted OOB x1P w/RW to BR. Pt a little fidgety & impulsive w/activity. Pt's gait
mildly unsteady, which is her baseline. Pt's R groin site w/dressing C/D/I w/small area of purple ecchymosis around edge of dressing. No signs or symptoms of bleeding or hematoma. Plan of care discussed w/pt & pt verbalized his understanding. Call
hutton within reach & no addtl needs at this time.
--- NOTE | 2024-02-12 09:14 | W.PN.CARDCBS ---
Today's Communication / Plan
-
d/c today
Impression / Plan
-
.
PRIMARY CARE PROVIDER: RAJENDRA Fleming
PRIMARY PATIENT OMBUDSPERSON: Dick Perry DO
Impression:
1.Paroxysmal atrial fibrillation with previous pulsed field
ablation, 09/30/2023.
2. Status post redo pulsed wave ablation with Watchman device
implant, 02/11/2024.
3. Duodenal ulcer with gastrointestinal bleed.
4. 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
fractures.
5. Thyroid adenoma with partial thyroidectomy and resultant
hypothyroidism.
6. Bipolar disease.
7. Attention deficit hyperactivity disorder.
8. Anxiety and depression.
9. Former alcohol abuse.
Plan:
Remains sinus
Cont oral anticoagulation for at least 3 months post Watchman then if GUERRERO shows no significant leaks and is stable, then anticoagulation will be stopped for ASA 81 mg daily.
Follow up in 2 weeks DCA
GUERRERO in 3 months
Discussed with nursing.
Progress Note - Physical Therapy Assistant Instructor
Subjective
Date of Service: February 12, 2024
Pt seen and examined. No cp or dyspnea.
Objective
Labs:
02/12/24 03:39
02/12/24 03:39
Labs
Hgb 11.8 g/dL (12.0-16.0) L D 02/12/24 03:39
Hct 35.1 % (37.0-47.0) L 02/12/24 03:39
Plt Count 210 10^3/uL (130-400) D 02/12/24 03:39
PT 13.5 Sec (11.4-14.6) 02/07/24 14:02
INR 0.98 02/07/24 14:02
Sodium 135 mmol/L (135-145) 02/12/24 03:39
Potassium 4.4 mmol/L (3.5-5.1) 02/12/24 03:39
BUN 21 mg/dl (7-17) H 02/12/24 03:39
Creatinine 0.6 mg/dL (0.6-1.0) 02/12/24 03:39
Glucose 92 mg/dl (70-99) 02/12/24 03:39
Vital Signs and I&O:
Vital Signs
Temp Pulse Resp BP Pulse Ox
98.2 F 66 16 112/65 97
02/12/24 07:15 02/12/24 08:00 02/12/24 07:15 02/12/24 07:17 02/12/24 07:15
Vital Signs
Temp Pulse Resp BP Pulse Ox
98.2 F 66 16 112/65 97
02/12/24 07:15 02/12/24 08:00 02/12/24 07:15 02/12/24 07:17 02/12/24 07:15
Intake & Output
02/10/24 02/11/24 02/12/24 02/13/24
06:59 06:59 06:59 06:59
Intake Total 1320 / 1320
Balance 1320 / 1320
Physical Exam
Physical Exam
General: No acute distress, AAOX3
Neck: Negative JVD
Heart: Regular, Negative S3 positive S1/S2, Negative S4, No murmur
Lungs: CTA b/l, negative wheezes/rales/rhonchi
Abd: Positive BS, NT/ND, neg rebound/rigidity/guarding
Ext: Negative cyanosis/clubbing/edema
Neuro: nonfocal
[2024-02-12] MEDS: ADDERALL 20 MG PO ×2 (09:25→12:37)
[2024-02-12] MEDS: ELIQUIS 5 MG PO (09:26)
[2024-02-12] MEDS: LAMICTAL 150 MG PO (09:26)
[2024-02-12] MEDS: LAMICTAL 25 MG PO (10:06)
[2024-02-12 12:26] VITALS: BP 104/62
[2024-02-12] MEDS: MAGNESIUM OXIDE 500 MG PO (12:37)
[2024-02-12] MEDS: TOPROL XL 12.5 MG PO (12:37)
--- NOTE | 2024-02-12 13:30 | PTCARENOTE ---
Pt's IV line & telemetry pack D/C'd. Discussed D/C instructions w/pt & pt's spouse. Pt taken out via wheelchair w/spouse driving her home.
== END 2024-02-12 13:35 | disposition home or self-care (01) | DRG 317 ==
LOC: IVU 05:56
PROVIDERS: Nurse Practitioner; ADMITTING PHYSICIAN Internal Medicine Cardiovascular Disease; FAMILY PHYSICIAN Nurse Practitioner Primary Care; OTHER PHYSICIAN Nuclear Medicine Nuclear Cardiology
PROC: 4A023FZ Measurement of Cardiac Rhythm, Percutaneous Approach (ICD-10-PCS; 2024-02-11)
PROC: 02583ZF Destruction of Conduction Mechanism using Irreversible Electroporation, Percutaneous Approach (ICD-10-PCS; 2024-02-11)
PROC: B24BZZ4 Ultrasonography of Heart with Aorta, Transesophageal (ICD-10-PCS; 2024-02-11)
PROC: 4A0234Z Measurement of Cardiac Electrical Activity, Percutaneous Approach (ICD-10-PCS; 2024-02-11)
PROC: 02K83ZZ Map Conduction Mechanism, Percutaneous Approach (ICD-10-PCS; 2024-02-11)
PROC: 02L73DK Occlusion of Left Atrial Appendage with Intraluminal Device, Percutaneous Approach (ICD-10-PCS; 2024-02-11)
DX: I48.0 Paroxysmal atrial fibrillation (principal); Z00.6 Encounter for examination for normal comparison and control in clinical research program; E89.0 Postprocedural hypothyroidism; R29.6 Repeated falls; F31.9 Bipolar disorder, unspecified; F41.9 Anxiety disorder, unspecified; F90.9 Attention-deficit hyperactivity disorder, unspecified type; F10.91 Alcohol use, unspecified, in remission; Y83.6 Removal of other organ (partial) (total) as the cause of abnormal reaction of the patient, or of later complication, without mention of misadventure at the time of the procedure; Z79.01 Long term (current) use of anticoagulants; Z87.11 Personal history of peptic ulcer disease; Z91.81 History of falling
CPT/HCPCS: 33340; 36415; 80048; 80053; 83735; 85025; 85027; 85347; 85610; 86850; 86900; 86901; 87070; 93005; 93355; 93656; 93657; C1730; C1732; C1733; C1766; C1892; C1894; Q9967

== ENCOUNTER → 2024-03-26 09:20 | Outpatient (REF) | payer MEDICARE, SELFPAY | LOC: DHSLP 09:20 | PROVIDERS: ATTENDING PHYSICIAN Nurse Practitioner; FAMILY PHYSICIAN Nurse Practitioner Primary Care | DX: G47.33 Obstructive sleep apnea (adult) (pediatric) (principal) | CPT/HCPCS: 95800 ==

== ENCOUNTER 2024-05-07 11:31 | Day surgery (SDC) | payer MEDICARE, SELFPAY ==
[2024-05-07 11:51] VITALS: BMI 22.6
== END 2024-05-07 13:30 | disposition home or self-care (01) ==
LOC: CATH 11:31
PROVIDERS: ATTENDING PHYSICIAN Nuclear Medicine Nuclear Cardiology; FAMILY PHYSICIAN Nurse Practitioner Primary Care
DX: Z45.09 Encounter for adjustment and management of other cardiac device (principal); I48.0 Paroxysmal atrial fibrillation; Z95.818 Presence of other cardiac implants and grafts; Z98.890 Other specified postprocedural states; Z79.899 Other long term (current) drug therapy; Z79.890 Hormone replacement therapy; E03.9 Hypothyroidism, unspecified; I08.1 Rheumatic disorders of both mitral and tricuspid valves; Z79.82 Long term (current) use of aspirin; I70.0 Atherosclerosis of aorta
CPT/HCPCS: 93312; 93320; 93325

== ENCOUNTER → 2024-05-25 09:23 | Outpatient (REF) | payer MEDICARE, SELFPAY ==
[2024-05-25 10:49] LABS: % Basophils 1.2 % (0-2); % Eosinophils 2.5 % (0-6); % Immature Granulocytes 0.4 % (0-0.5); % Lymphocytes 24.3 % (20.5-51.1); % Monocytes 11.9 % (1.7-9.3); % Neutrophils 59.7 % (42.2-75.2); Absolute Basophils 0.1 10^3/uL (0-0.2); Absolute Eosinophils 0.1 10^3/uL (0-0.7); Absolute Lymphocytes 1.2 10^3/uL (1.2-3.4); Absolute Monocytes 0.6 10^3/uL (0.1-0.6); Absolute Neutrophils 3.1 10^3/uL (1.4-6.5); Hematocrit 42.2 % (37.0-47.0); Hemoglobin 14.5 g/dL (12.0-16.0); Mean Corp Hgb Conc. 34.4 g/dL (33.0-37.0); Mean Corpuscular Volume 98.8 fL (81.0-99.0); Mean Platelet Volume 9.3 fL (7.4-10.4); Nucleated Red Blood Cells % 0 %; Platelet Count 281 10^3/uL (130-400); Red Blood Cell Count 4.27 10^6/uL (4.20-5.40); Red Cell Dist. Width 12.4 % (11.5-14.5); White Blood Cell Count 5.1 10^3/uL (4.8-10.8)
[2024-05-25 15:23] LABS: ALT (SGPT) 34 U/L (0-35); AST (SGOT) 59 U/L (14-36); Albumin 4.6 g/dl (3.5-5.0); Alkaline Phosphatase 69 U/L (38-126); Blood Urea Nitrogen 15 mg/dl (7-17); Calcium 9.4 mg/dl (8.4-10.2); Carbon Dioxide 26 mmol/L (22-30); Chloride 105 mmol/L (98-107); Glucose 86 mg/dl (70-99); Potassium 5.1 mmol/L (3.5-5.1); Sodium 140 mmol/L (135-145); Total Bilirubin 0.5 mg/dl (0.2-1.3); Total Protein 6.5 g/dl (6.3-8.2); eGFR > 60.00
[2024-05-25 17:35] LABS: Vitamin D, 25-OH*** 40.5 ng/mL (30-80)
== END ==
LOC: REG 09:23
PROVIDERS: ATTENDING PHYSICIAN Student in an Organized Health Care Education/Training Program; FAMILY PHYSICIAN Nurse Practitioner Primary Care
DX: A15.9 Respiratory tuberculosis unspecified (principal); D47.2 Monoclonal gammopathy; E21.5 Disorder of parathyroid gland, unspecified; E27.9 Disorder of adrenal gland, unspecified; E53.8 Deficiency of other specified B group vitamins; E55.9 Vitamin D deficiency, unspecified; E83.10 Disorder of iron metabolism, unspecified; G89.29 Other chronic pain; G95.9 Disease of spinal cord, unspecified; I73.00 Raynaud's syndrome without gangrene; K75.9 Inflammatory liver disease, unspecified; K90.0 Celiac disease; M06.00 Rheumatoid arthritis without rheumatoid factor, unspecified site; M06.4 Inflammatory polyarthropathy; M11.20 Other chondrocalcinosis, unspecified site; M15.0 Primary generalized (osteo)arthritis; M25.50 Pain in unspecified joint; M25.511 Pain in right shoulder; M25.512 Pain in left shoulder; M25.551 Pain in right hip; M25.552 Pain in left hip; M79.641 Pain in right hand; M79.642 Pain in left hand; M79.671 Pain in right foot; M79.672 Pain in left foot; M81.0 Age-related osteoporosis without current pathological fracture; R26.89 Other abnormalities of gait and mobility; R41.3 Other amnesia; R82.994 Hypercalciuria; Z51.81 Encounter for therapeutic drug level monitoring; Z78.9 Other specified health status; Z91.81 History of falling; Z96.651 Presence of right artificial knee joint; Z98.84 Bariatric surgery status
CPT/HCPCS: 36415; 80053; 82306; 85025